=== PATIENT | male | born 1995 | race Caucasian/White ===

== ENCOUNTER 2017-10-29 14:36 | Emergency (ER) | payer SELFPAY ==
[~2017-10-29] VITALS: Ht 162.6 cm; Wt 63.6 kg
[2017-10-29 14:42] VITALS: BP 118/74; PULSE 78
[2017-10-29] MEDS ORDERED: ULTRAM 50MG TAB50 MG PO (15:54)
== END 2017-10-29 16:17 | disposition home or self-care (01) ==
LOC: COL.ER 14:36
DX: S62.357A Nondisplaced fracture of shaft of fifth metacarpal bone, left hand, initial encounter for closed fracture (principal); W23.0XXA Caught, crushed, jammed, or pinched between moving objects, initial encounter
CPT/HCPCS: Q4021

== ENCOUNTER 2017-11-26 11:21 | Emergency (ER) | payer SELFPAY ==
[~2017-11-26] VITALS: Ht 162.6 cm; Wt 65.9 kg
[~2017-11-26 11:21] MED LIST: ULTRAM 50MG TAB50 MG PO
[2017-11-26 11:22] VITALS: BP 113/72; PULSE 77; TEMP 98
== END 2017-11-26 12:17 | disposition home or self-care (01) ==
LOC: COL.ER 11:21
DX: S92.414A Nondisplaced fracture of proximal phalanx of right great toe, initial encounter for closed fracture (principal); F17.210 Nicotine dependence, cigarettes, uncomplicated; W22.09XA Striking against other stationary object, initial encounter; Y92.009 Unspecified place in unspecified non-institutional (private) residence as the place of occurrence of the external cause

== ENCOUNTER 2018-02-13 19:40 | Emergency (ER) | payer SELFPAY ==
[~2018-02-13] VITALS: Ht 162.6 cm; Wt 65.9 kg
[2018-02-13 20:50] LABS: BASO % 0.2 % (0.0-2.0); EOS % 0.3 % (0-4.0); GRAN % 80.8 % (42.2-75.2); HEMATOCRIT 43.6 % (42.0-52.0); HEMOGLOBIN 15.3 g/dl (13.5-18.0); LYMPH # 1.7 (1.2-3.4); MEAN CELL VOLUME 93 fl (80.0-100.0); MEAN CORPUSCULAR HEMOGLOBIN 33 pg (27.0-31.0); MEAN CORPUSCULAR HGB CONC 35 g/dl (33.0-37.0); MEAN PLATELET VOLUME 9.6 fl (7.4-10.4); MONO # 0.5 (0.1-0.6); MONO % 4.3 % (1.7-9.3); PLATELET COUNT 199 K/mm3 (130-400); RED BLOOD COUNT 4.69 M/mm3 (4.20-5.60); REDCELL DISTRIBUTION WIDTH-CV 13.9 % (11.5-14.5)
[2018-02-13 20:59] VITALS: BP 115/70; PULSE 62; TEMP 96.9
[2018-02-13 20:59] LABS: ALBUMIN 3.7 gm/dL (3.5-5.0); BILIRUBIN,TOTAL 0.4 mg/dL (0.0-1.0); CALCIUM 8.7 mg/dL (8.4-10.2); CREATININE, serum 0.59 mg/dL (0.66-1.25); POTASSIUM 3.8 mmol/L (3.4-5.0); TOTAL PROTEIN 6.7 gm/dL (6.4-8.2)
== END 2018-02-13 21:00 | disposition home or self-care (01) ==
LOC: COL.ER 19:40
PROVIDERS: Family Medicine
DX: F10.129 Alcohol abuse with intoxication, unspecified (principal); E86.0 Dehydration; R11.10 Vomiting, unspecified; Z87.891 Personal history of nicotine dependence; Y90.6 Blood alcohol level of 120-199 mg/100 ml
CPT/HCPCS: J2405; J7030

== ENCOUNTER 2018-03-19 18:25 | Emergency (ER) | payer SELFPAY ==
[~2018-03-19] VITALS: Ht 162.6 cm; Wt 61.3 kg
[2018-03-19 18:50] VITALS: BP 141/85; TEMP 102
[2018-03-19 19:40] LABS: BASO % 0.4 % (0.0-2.0); EOS % 0.1 % (0-4.0); GRAN # 5.9 (1.4-6.5); GRAN % 74.1 % (42.2-75.2); HEMATOCRIT 47.8 % (42.0-52.0); HEMOGLOBIN 17.2 g/dl (13.5-18.0); LYMPH # 0.9 (1.2-3.4); LYMPH % 11.4 % (20.0-51.0); MEAN CELL VOLUME 91 fl (80.0-100.0); MEAN CORPUSCULAR HEMOGLOBIN 33 pg (27.0-31.0); MEAN CORPUSCULAR HGB CONC 36 g/dl (33.0-37.0); MONO # 1.1 (0.1-0.6); MONO % 13.9 % (1.7-9.3); PLATELET COUNT 158 K/mm3 (130-400); RED BLOOD COUNT 5.27 M/mm3 (4.20-5.60); REDCELL DISTRIBUTION WIDTH-CV 14.3 % (11.5-14.5)
[2018-03-19 19:46] LABS: ALBUMIN 4.1 gm/dL (3.5-5.0); BILIRUBIN,TOTAL 0.4 mg/dL (0.0-1.0); CALCIUM 9.3 mg/dL (8.4-10.2); CREATININE, serum 0.76 mg/dL (0.66-1.25); POTASSIUM 3.7 mmol/L (3.4-5.0); TOTAL PROTEIN 6.9 gm/dL (6.4-8.2)
[2018-03-19 19:54] LABS: COLLECTION METHOD RANDOM VOIDED
[2018-03-19 20:05] LABS: MUCOUS Present /lpf; PH 5 (5-8); SQUAMOUS EPITHELIAL None Seen /hpf; URINE APPEARANCE Clear; URINE BACTERIA None Seen /hpf; URINE BILIRUBIN Negative (NEGATIVE); URINE BLOOD Negative (NEGATIVE); URINE COLOR Yellow; URINE GLUCOSE Negative (NEGATIVE); URINE KETONE 1+ (NEGATIVE); URINE LEUKOCYTE ESTERASE Negative (NEGATIVE); URINE NITRATE Negative (NEGATIVE); URINE PROTEIN(semi-quant) Negative (NEGATIVE); URINE RBC 0-2 /hpf; URINE UROBILINOGEN >=4.0 mg/dL (NEGATIVE)
[2018-03-19] MEDS ORDERED: LEVAQUIN 5500 MG/TA1 PO (20:20)
[2018-03-19 21:03] VITALS: PULSE 93
[2018-03-20] MEDS ORDERED: NORCO 325 MG-51 TAB PO (11:14)
[2018-03-21 13:21] LABS: MUMPS AB IgG INDEX 0.3 (()); MUMPS VIRUS ANTIBODY,IGG Negative (())
== END 2018-03-19 21:04 | disposition home or self-care (01) ==
LOC: COL.ER 18:25
PROVIDERS: Physician Assistant
DX: N50.819 Testicular pain, unspecified (principal); R53.81 Other malaise; F17.210 Nicotine dependence, cigarettes, uncomplicated
CPT/HCPCS: J0696

== ENCOUNTER 2018-03-20 11:01 | Emergency (ER) | payer SELFPAY ==
[~2018-03-20] VITALS: Ht 162.6 cm; Wt 60.9 kg
[~2018-03-20 11:01] MED LIST changes: +LEVAQUIN 5500 MG/TA1 PO
[2018-03-20 11:12] VITALS: BP 121/82; TEMP 98.2
[2018-03-20] MEDS ORDERED: NORCO 325 MG-51 TAB PO (11:14)
[2018-03-20 13:31] VITALS: PULSE 87
== END 2018-03-20 13:34 | disposition left against medical advice (07) ==
LOC: COL.ER 11:01
DX: N45.1 Epididymitis (principal)

== ENCOUNTER 2018-11-01 17:50 | Emergency (ER) | payer SELFPAY ==
[~2018-11-01 17:50] MED LIST changes: +NORCO 325 MG-51 TAB PO
[2018-11-01 17:57] VITALS: TEMP 99.3
[2018-11-01 19:52] LABS: BASO % 0.2 % (0.0-2.0); EOS # 0.1 (0.0-0.7); EOS % 0.6 % (0-4.0); GRAN # 9.5 (1.4-6.5); GRAN % 72.5 % (42.2-75.2); HEMATOCRIT 42.8 % (42.0-52.0); HEMOGLOBIN 14.9 g/dl (13.5-18.0); LYMPH # 2.1 (1.2-3.4); LYMPH % 15.8 % (20.0-51.0); MEAN CELL VOLUME 91 fl (80.0-100.0); MEAN CORPUSCULAR HEMOGLOBIN 32 pg (27.0-31.0); MEAN CORPUSCULAR HGB CONC 35 g/dl (33.0-37.0); MONO # 1.4 (0.1-0.6); MONO % 10.6 % (1.7-9.3); PLATELET COUNT 269 K/mm3 (130-400); RED BLOOD COUNT 4.69 M/mm3 (4.20-5.60); REDCELL DISTRIBUTION WIDTH-CV 13.5 % (11.5-14.5)
[2018-11-01 20:03] LABS: BILIRUBIN,TOTAL 0.5 mg/dL (0.0-1.0); CALCIUM 9.1 mg/dL (8.4-10.2); CREATININE, serum 0.71 mg/dL (0.66-1.25); POTASSIUM 3.8 mmol/L (3.4-5.0); TOTAL PROTEIN 7.2 gm/dL (6.4-8.2)
[2018-11-01 20:15] LABS: C-REACTIVE PROTEIN 13.9 mg/dL (0.0-0.9)
[2018-11-01 21:22] LABS: TROPONIN-I < 0.012 ng/mL (0.000-0.035)
[2018-11-01] MEDS ORDERED: LEVAQUIN 750MG750 M1 PO (21:42)
[2018-11-01 22:08] VITALS: BP 113/74; PULSE 86
[2018-11-03] MEDS ORDERED: OMNICEF 300MG300 MG PO (15:12)
[2018-11-03] MEDS ORDERED: LEVAQUIN 5500 MG/TA1 PO (15:20)
== END 2018-11-01 22:08 | disposition home or self-care (01) ==
LOC: COL.ER 17:50
PROVIDERS: Physician Assistant
DX: J18.1 Lobar pneumonia, unspecified organism (principal)
CPT/HCPCS: J1885; Q9967

== ENCOUNTER 2018-11-03 13:10 | Emergency (ER) | payer SELFPAY | END 2018-11-03 16:08 | disposition home or self-care (01) | LOC: COL.ER 13:10 | DX: J18.9 Pneumonia, unspecified organism (principal); F17.210 Nicotine dependence, cigarettes, uncomplicated ==

== ENCOUNTER 2018-11-04 13:00 | Inpatient (IN) | payer SELFPAY ==
[~2018-11-04] VITALS: Ht 162.6 cm; Wt 64.0 kg
[~2018-11-04 13:00] MED LIST changes: +LEVAQUIN 750MG750 M1 PO; +OMNICEF 300MG300 MG PO
[2018-11-04 14:34] LABS: HEMATOCRIT 41.1 % (42.0-52.0); MEAN CELL VOLUME 91 fl (80.0-100.0); MEAN CORPUSCULAR HEMOGLOBIN 32 pg (27.0-31.0); MEAN CORPUSCULAR HGB CONC 35 g/dl (33.0-37.0); MEAN PLATELET VOLUME 9.1 fl (7.4-10.4); PLATELET COUNT 277 K/mm3 (130-400); RED BLOOD COUNT 4.52 M/mm3 (4.20-5.60); REDCELL DISTRIBUTION WIDTH-CV 13.6 % (11.5-14.5)
[2018-11-04 14:39] LABS: HEMOGLOBIN 14.3 g/dl (13.5-18.0)
[2018-11-04 14:46] LABS: ALBUMIN 3.5 gm/dL (3.5-5.0); BILIRUBIN,TOTAL 0.8 mg/dL (0.0-1.0); CALCIUM 9.1 mg/dL (8.4-10.2); CREATININE, serum 0.57 mg/dL (0.66-1.25); POTASSIUM 3.7 mmol/L (3.4-5.0); TOTAL PROTEIN 6.9 gm/dL (6.4-8.2)
[2018-11-04 15:21] LABS: BAND 3 % (0-10); LYMPHOCYTE 1 % (20.0-51.0); NEUTROPHILS 93 % (42.0-75.2)
[2018-11-04 15:22] LABS: PLATELET ESTIMATE NORMAL (NORMAL); TOXIC GRANULATION PRESENT
[2018-11-04] MEDS ORDERED: TYLENOL 500MG500 MG PO (16:06)
[2018-11-04] MEDS ORDERED: ADVIL200 MG PO (16:06)
--- NOTE | 2018-11-04 16:07 | NUR ---
Pt arrived to room 306, he is A/O x3. His breathing is even and unlabored on RA. Pt has wet productive cough. Report R rib pain, warm pack provided. Pt denies N/V. R lung very diminished on auscultation. POC discussed with patient who verbalizes understanding. Call light within reach.
[2018-11-04 16:49] VITALS: BP 136/61; PULSE 78; TEMP 97.7
[2018-11-04 19:31] VITALS: BP 106/60; PULSE 96; TEMP 99.2
[2018-11-04 20:18] LABS: HIV 1/2 Antibodies Non-Reactive; HIV-1p24 Antigen Non-Reactive
--- NOTE | 2018-11-04 20:41 | NUR ---
PT RERSTING IN BED. A+OX4. PAIN /10 IN BACK INCREASES WITH COUGH. LAST BM 11/02/18. RIGHT SIDE LUNG ABEL ARE DIMINISHED. NO NEEDS AT THIS TIME CALL LIGHT IN REACH
[2018-11-04 23:32] VITALS: BP 117/68; PULSE 85; TEMP 99.9
--- NOTE | 2018-11-04 23:32 | NUR ---
PT HELPED TO SHOWER. PAIN IN BACK, PRN MEDS GIVEN. NO NEEDS AT THIS TIME. CALL LIGHT IN REACH
[2018-11-05 03:20] VITALS: BP 124/70; PULSE 94; TEMP 99.3
--- NOTE | 2018-11-05 05:04 | NUR ---
pt had an uneventful night. reports decreases back pain with PRN meds. pt continues to have hot/cold flashes. highest temp 99.9. pt had a shower last night. reports no needs at this time. call light in reach
[2018-11-05 06:17] LABS: HEMATOCRIT 38.3 % (42.0-52.0); HEMOGLOBIN 13.3 g/dl (13.5-18.0); MEAN CELL VOLUME 91 fl (80.0-100.0); MEAN CORPUSCULAR HEMOGLOBIN 32 pg (27.0-31.0); MEAN CORPUSCULAR HGB CONC 35 g/dl (33.0-37.0); MEAN PLATELET VOLUME 9.1 fl (7.4-10.4); PLATELET COUNT 264 K/mm3 (130-400); RED BLOOD COUNT 4.22 M/mm3 (4.20-5.60); REDCELL DISTRIBUTION WIDTH-CV 13.5 % (11.5-14.5)
[2018-11-05 06:31] LABS: CALCIUM 8.4 mg/dL (8.4-10.2); CREATININE, serum 0.67 mg/dL (0.66-1.25); POTASSIUM 3.9 mmol/L (3.4-5.0)
--- NOTE | 2018-11-05 07:04 | NUR ---
report given to MIKE Nagel. pt reports no needs at this time
--- NOTE | 2018-11-05 07:07 | NUR ---
ludmila will call critical lab value.
[2018-11-05 07:12] VITALS: BP 149/66; PULSE 100; TEMP 99.8
--- NOTE | 2018-11-05 07:35 | NUR ---
CALLED DR. MCMULLEN AND ADVISED OF CRITICAL LAB, WBC 22.6. NO NEW ORDERS GIVEN.
--- NOTE | 2018-11-05 08:06 | NUR ---
PT IN BED WITH HOB AT 45 DEGREE ANGLE. PT FEELS A LITTLE SOB. O2 SATS AT 96% ON ROOM AIR. CALLED RT AND RT ADVISED THAT THEY DO NOT HAVE BREATHING TX AT THIS TIME, AND WE JUST KIND OF HAVE TO WATCH FOR NOW. PT HAS PAIN AT 3/10 IN RIGHT SIDE OF RIBS, BUT IS TOLERABLE FOR PT. PT ADVISES THAT HE HAS SOME CLEAR THICK FOAMY SPUTUM IN SMALL AMOUNTS COMING UP. NO NEEDS AT THIS TIME. PT IS NOT HUNGERY. PT WAS OFFERED TO CALL KITCHEN FOR BREAKFAST BUT DECLINED AT THIS TIME. CALL LIGHT WITHIN REACH.
[2018-11-05 08:11] LABS: BAND 5 % (0-10); LYMPHOCYTE 7 % (20.0-51.0); NEUTROPHILS 82 % (42.0-75.2)
[2018-11-05 08:12] LABS: PLATELET ESTIMATE NORMAL (NORMAL)
[2018-11-05 12:38] VITALS: BP 139/66; PULSE 100; TEMP 100
--- NOTE | 2018-11-05 14:00 | NUR ---
According to primary care nurse, Dr. Adams would like to wait till blood cultures results are obtained before placing a PICC. Will obtain consent and perform placement tomorrow. Hospitalist informed.
--- NOTE | 2018-11-05 14:30 | NUR ---
SW attempted to meet with patient about discharge plans. Patient was asleep. SW will try back later.
[2018-11-05 15:45] LABS: INR 1.4 (0.8-3.0); PROTHROMBIN TIME 15.6 SECONDS (9.7-12.8)
[2018-11-05 16:00] VITALS: BP 150/69; PULSE 109; TEMP 99.4
[2018-11-05 17:28] LABS: PLEURAL FLUID RBC 4000 /mm3 (0-0); PLEURAL FLUID WBC 11023 /mm3
[2018-11-05 17:32] LABS: PLEURAL FLUID APPEARANCE HAZY; PLEURAL FLUID COLOR YELLOW
[2018-11-05 17:39] LABS: TOTAL PROTEIN,PLEURAL FLUID 4.3 gm/dL
[2018-11-05 17:42] LABS: GLUCOSE,PLEURAL FLUID < 20 mg/dL
--- NOTE | 2018-11-05 18:46 | NUR ---
PT HAD BEEN SEEN BY DR. STATON THIS AM. DR. STATON DISCUSSED POSSIBLE THOROCENTESIS OR POSSIBLE VATS WHICH WOULD MEAN THAT PT WOULD NEED TO BE TAKEN INTO SURGERY. PT WAS TAKEN DOWN FOR ULTRA SOUND AND THEN RETURNED TO ROOM. PT WAS THEN TAKEN DOWN TO RADIOLOGY FOR THOROCENTESIS. PT RETURNED TO ROOM AND ORDERED FOOD AND HAD SHOWER. PT ADVISES THAT HE FEELS A LOT BETTER SINCE HE HAS HAD THE THOROCENTESIS. PT HAS GIRLFRIEND IN ROOM AT BEDSIDE. PT HAS NO NEEDS AT THIS TIME. CALL LIGHT WITHIN REACH.
--- NOTE | 2018-11-05 19:09 | NUR ---
DR. GAYLE WAS CALLED IN REFERENCE TO PICC PLACEMENT. DR. GAYLE ADVISED TO WAIT UNTIL THE BLOOD CULTURES COME BACK BEFORE PLACEMENT OF PICC LINE. DARRELL MCKEON ADVISED AND DR. MCMULLEN. DR. MCMULLEN ADVISED THAT IT WOULD BE OKAY TO WAIT FOR BLOOD CULTURES WELL.
[2018-11-05 19:46] VITALS: BP 115/72; PULSE 93; TEMP 98.4
--- NOTE | 2018-11-05 20:16 | NUR ---
PT resting in bed A+Ox4 no pain. no soa. reports BM today. no needs at this time. call light in reach.
[2018-11-06] VITALS (13 sets, daily range): BP systolic 114–130; BP diastolic 63–84; PULSE 70–111; TEMP 97.5–100.1
--- NOTE | 2018-11-06 05:20 | NUR ---
pt had an uneventful night. pain in back-prn meds given and reported relief. c/o with IV in left arm. discotinued IV. catheter tip intact. New 22G IV started right forarm, flushes well. no redness. no swelling. pt reports no pain with IV site. no needs at this time. call light inreach
[2018-11-06 05:58] LABS: BASO # 0.1 (0.0-0.2); BASO % 0.3 % (0.0-2.0); EOS # 0.4 (0.0-0.7); EOS % 2.5 % (0-4.0); GRAN # 12.9 (1.4-6.5); GRAN % 76.2 % (42.2-75.2); HEMOGLOBIN 13.1 g/dl (13.5-18.0); LYMPH # 2.1 (1.2-3.4); LYMPH % 12.5 % (20.0-51.0); MEAN CELL VOLUME 90 fl (80.0-100.0); MEAN CORPUSCULAR HEMOGLOBIN 32 pg (27.0-31.0); MEAN CORPUSCULAR HGB CONC 36 g/dl (33.0-37.0); MEAN PLATELET VOLUME 9.2 fl (7.4-10.4); MONO # 1.3 (0.1-0.6); MONO % 7.9 % (1.7-9.3); PLATELET COUNT 304 K/mm3 (130-400); RED BLOOD COUNT 4.08 M/mm3 (4.20-5.60); REDCELL DISTRIBUTION WIDTH-CV 13.6 % (11.5-14.5)
[2018-11-06 06:00] LABS: HEMATOCRIT 36.7 % (42.0-52.0)
[2018-11-06 06:20] LABS: CALCIUM 8.4 mg/dL (8.4-10.2); CREATININE, serum 0.67 mg/dL (0.66-1.25); POTASSIUM 3.5 mmol/L (3.4-5.0)
--- NOTE | 2018-11-06 07:22 | NUR ---
report given to MIKE Cruz. pt reports no needs at this time
--- NOTE | 2018-11-06 08:15 | NUR ---
Patient assessment completed. Patient is alert and oriented, unlabored breathing. HR RRR, denies pain, SOB, dizziness, nausea. IV site CDI. Thoracentesis site is clean and dry. Patient requesting shower prior to surgery. Patient currently on clear liquids until 0900 and will be NPO then. Patient denies other needs at this time. Girlfriend is at bedside and call light within reach.
--- NOTE | 2018-11-06 11:02 | NUR ---
PICC line placed, IVF infusing. POC discussed with patient who verbalizes understanding.
--- NOTE | 2018-11-06 14:08 | NUR ---
SW met with patient to discuss discharge planning. Patient lives with his significant other Amanda. He does not have a PCP and obtains his medications at [facility]. SW contacted Financial to meet with patient as he has no insurance. SW will continue to follow for discharge needs.
--- NOTE | 2018-11-06 14:29 | NUR ---
Patient down to surgery. LR running, anesthesia notified. Vanc stopped. Family walked down with patient and will return to get belongings.
--- NOTE | 2018-11-06 15:59 | NUR ---
Report called and given to Teresa in surgical.
--- NOTE | 2018-11-06 17:20 | NUR ---
PATIENT ADMITED INTO ROOM 322-2 POST OP VATS. CHEST TUBE TO LIS, BUBBLING WITH SUCTION CONTROL CHAMBER FLUCTUATING BETWEEN 10-12. LIS TURNED DOWN. PATIENT C/O DISCOMFORT AT CHEST TUBE SITE. GAVE PRN IV DILADID PER ORDERS. RIGHT CHEST TUBE DRESSING IS CD&I. DEMINISHED LUNG FEILDS IN RLL BASE. PATIENT TAKING SHALLOW BREATHES, WHISPERS WITH TALKING. NO C/O N/V. PATIENT GIVEN SIPS OF WATER. IV FLUIDS INFUSING INTO RIGHT UPPER ARM PICC LINE. HEAD TO TOE ASSESSMENT COMPLETE. FAMILY AT BEDSIDE. CALL LIGHT IN REACH.
--- NOTE | 2018-11-06 20:30 | NUR ---
Pt. laying in bed with significant other at bedside. Pt. is A&OX3, assessment complete. PICC to rt. upper arm patent, IV fluids infusing per orders. Chest tube to rt. chest to water seal with continuous suction. Dressing CDI. Pt. reported pain at a 6 on pain scale, gave pain meds per orders. Pt. denies further needs, call light within reach.
[2018-11-07 03:26] VITALS: BP 118/83; PULSE 70; TEMP 97.6
--- NOTE | 2018-11-07 05:55 | NUR ---
Pt. slept off and on through the night. Pt. remains A&OX3. PICC to Rt. upper arm patent, IV fluids infusing per orders. Chest tube to rt. chest intact, to continuous suction, dressing CDI. Pt. given 1 percocet this am, see mar. Pt. denies further needs at this time. Call light within reach.
[2018-11-07 07:18] LABS: HEMATOCRIT 38.2 % (42.0-52.0); HEMOGLOBIN 13.3 g/dl (13.5-18.0); MEAN CELL VOLUME 91 fl (80.0-100.0); MEAN CORPUSCULAR HEMOGLOBIN 32 pg (27.0-31.0); MEAN CORPUSCULAR HGB CONC 35 g/dl (33.0-37.0); MEAN PLATELET VOLUME 9.5 fl (7.4-10.4); PLATELET COUNT 295 K/mm3 (130-400); RED BLOOD COUNT 4.19 M/mm3 (4.20-5.60)
[2018-11-07 07:28] LABS: CALCIUM 8.8 mg/dL (8.4-10.2); CREATININE, serum 0.55 mg/dL (0.66-1.25); POTASSIUM 3.9 mmol/L (3.4-5.0)
[2018-11-07 07:45] VITALS: BP 120/65; PULSE 61; TEMP 97.7
[2018-11-07 09:06] LABS: BAND 13 % (0-10); LYMPHOCYTE 3 % (20.0-51.0); NEUTROPHILS 76 % (42.0-75.2); PLATELET ESTIMATE NORMAL (NORMAL)
--- NOTE | 2018-11-07 09:45 | NUR ---
Patient alert and oriented, answers questions appropriately. See assessment. Chest tube to suction in place to right upper chest, dressing clean, dry and intact. Bubbling noted in chest tube. Lungs clear in bases and left upper lobe. Scattered wheezes noted to RUL. Encouraged cough and deep breath. Encouraged to ambulate.
--- NOTE | 2018-11-07 10:15 | NUR ---
Dr Christensen here to see patient, suction to chest tube disconnected by physician.
--- NOTE | 2018-11-07 11:07 | NUR ---
ANY met with patient and girlfriend. Patient voiced concerns about paying for the prescribed antibiotics when he is discharged. SW informed patient she can provide a med voucher if the antibiotics are oral. At this time it is unknown if patient will need IV or oral antibiotics. SW will continue to follow and assist with discharge needs.
[2018-11-07 11:53] VITALS: BP 116/65; PULSE 71; TEMP 97.5
[2018-11-07 16:06] VITALS: BP 108/71; PULSE 84; TEMP 98.1
[2018-11-07 21:12] VITALS: BP 124/83; PULSE 73; TEMP 98
[2018-11-08 00:56] VITALS: BP 115/72; PULSE 61; TEMP 97.8
[2018-11-08 04:30] VITALS: BP 107/71; PULSE 67; TEMP 97.6
[2018-11-09 08:00] VITALS: BP 113/63; PULSE 82; TEMP 98.2
--- NOTE | 2018-11-09 08:00 | NUR ---
Patient in bed resting. Family at bedside. Alert and oriented x 3. Shift assessment complete. Dressing to right chest tube site, CDI. PICC to JAXON without complications. SCDs to BLE. Denies pain or further needs at this time.
[2018-11-09 12:00] VITALS: BP 112/73; PULSE 87; TEMP 98.6
[2018-11-09 12:35] LABS: .HISTOPLASMA ANTIGEN SERUM None Detected (())
[2018-11-09 15:39] LABS: ALBUMIN 3.1 gm/dL (3.5-5.0); BILIRUBIN,TOTAL 0.3 mg/dL (0.0-1.0); CALCIUM 8.8 mg/dL (8.4-10.2); CREATININE, serum 0.61 mg/dL (0.66-1.25); POTASSIUM 3.8 mmol/L (3.4-5.0); TOTAL PROTEIN 6.6 gm/dL (6.4-8.2)
[2018-11-09 15:40] LABS: CALCIUM 8.7 mg/dL (8.4-10.2); CREATININE, serum 0.57 mg/dL (0.66-1.25); POTASSIUM 3.5 mmol/L (3.4-5.0)
[2018-11-09 16:12] LABS: HEMATOCRIT 37.9 % (42.0-52.0); HEMOGLOBIN 13.2 g/dl (13.5-18.0); MEAN CELL VOLUME 91 fl (80.0-100.0); MEAN CORPUSCULAR HEMOGLOBIN 32 pg (27.0-31.0); MEAN CORPUSCULAR HGB CONC 35 g/dl (33.0-37.0); MEAN PLATELET VOLUME 9.5 fl (7.4-10.4); PLATELET COUNT 295 K/mm3 (130-400); RED BLOOD COUNT 4.15 M/mm3 (4.20-5.60); REDCELL DISTRIBUTION WIDTH-CV 13.9 % (11.5-14.5)
[2018-11-09 16:12] LABS: HEMATOCRIT 39.3 % (42.0-52.0); HEMOGLOBIN 13.5 g/dl (13.5-18.0); MEAN CELL VOLUME 92 fl (80.0-100.0); MEAN CORPUSCULAR HEMOGLOBIN 32 pg (27.0-31.0); MEAN CORPUSCULAR HGB CONC 34 g/dl (33.0-37.0); MEAN PLATELET VOLUME 8.8 fl (7.4-10.4); PLATELET COUNT 300 K/mm3 (130-400); RED BLOOD COUNT 4.27 M/mm3 (4.20-5.60); REDCELL DISTRIBUTION WIDTH-CV 14.2 % (11.5-14.5)
[2018-11-09 16:43] VITALS: BP 109/62; PULSE 85; TEMP 97.8
--- NOTE | 2018-11-09 17:37 | NUR ---
Patient has rested well through the day. Family in room. States occassional mild pain to right chest tube site. PICC to right upper arm without complications. Has been up ambulating with girlfriend and walker, steady gait. Denies further needs at this time. Will report off to film processing shift supervisor.
--- NOTE | 2018-11-09 21:30 | NUR ---
Pt. sitting up in bed with family at bedside. Pt. is A&OX3, assessment complete. PICC to rt. upper arm patent. Dressing to rt. chest tube site CDI with gauze. Pt. reports pain at a 5 on pain scale, gave pain meds per orders. Pt. denies further needs, call light within reach.
[2018-11-10] VITALS: BP 125/76; PULSE 80; TEMP 98.3
[2018-11-10 05:41] LABS: HEMATOCRIT 39.3 % (42.0-52.0); HEMOGLOBIN 13.5 g/dl (13.5-18.0); MEAN CELL VOLUME 92 fl (80.0-100.0); MEAN CORPUSCULAR HEMOGLOBIN 32 pg (27.0-31.0); MEAN CORPUSCULAR HGB CONC 34 g/dl (33.0-37.0); MEAN PLATELET VOLUME 8.5 fl (7.4-10.4); PLATELET COUNT 307 K/mm3 (130-400); RED BLOOD COUNT 4.29 M/mm3 (4.20-5.60)
[2018-11-10 05:52] LABS: CALCIUM 8.9 mg/dL (8.4-10.2); CREATININE, serum 0.63 mg/dL (0.66-1.25); POTASSIUM 3.9 mmol/L (3.4-5.0)
[2018-11-10 06:23] LABS: BAND 3 % (0-10); BASOPHIL 1 % (0-2); EOSINOPHIL 9 % (0-4); LYMPHOCYTE 21 % (20.0-51.0); NEUTROPHILS 58 % (42.0-75.2); PLATELET ESTIMATE NORMAL (NORMAL); SCHISTOCYTES 1+
[2018-11-10 08:21] VITALS: BP 112/72; PULSE 75; TEMP 98
--- NOTE | 2018-11-10 10:00 | NUR ---
Patient ambulating in [place] with walker and stand by assist.
[2018-11-10] MEDS ORDERED: LEVAQUIN 750MG750 M1 PO ×2 (11:50→13:26)
[2018-11-10] MEDS ORDERED: CLEOCIN HCL300 MG PO ×2 (11:51→13:26)
[2018-11-10 12:16] VITALS: BP 120/82; PULSE 99; TEMP 98.2
--- NOTE | 2018-11-10 13:30 | NUR ---
Discharge instructions provided. Patient educated on signs and symptoms of infection and when to call provider. Appointment cards provided. Educated patient on post picc line care. Denies pain at this time. Denies further needs at this time.
--- NOTE | 2018-11-10 13:33 | NUR ---
The patient is to discharge today, 11/10. ANY met with the patient regarding a med voucher. ANY provided a med voucher for the patient to [facility]. ANY faxed script and med voucher to [facility], a copy was placed in the patient's chart, and the patient is instructed to take the originals Nazlini's. ANY informed the housekeeping aid. There are no additional needs at this time.
--- NOTE | 2018-11-10 13:40 | NUR ---
Patient ambulated out with surgical staff.
== END 2018-11-10 13:40 | disposition home or self-care (01) | DRG 853 ==
LOC: COL.ER 13:00 → MEDICAL 14:18 → SURG 11-06 15:23
PROVIDERS: Emergency Medicine; Internal Medicine Infectious Disease; Internal Medicine Pulmonary Disease; Physician Assistant; Surgery; ADMIT Hospitalist
PROC: 0BNC4ZZ Release Right Upper Lung Lobe, Percutaneous Endoscopic Approach (ICD-10-PCS; principal; 2018-11-06 15:00)
PROC: 0BNJ4ZZ Release Left Lower Lung Lobe, Percutaneous Endoscopic Approach (ICD-10-PCS; principal; 2018-11-06 15:00)
DX: A41.9 Sepsis, unspecified organism (principal); J18.1 Lobar pneumonia, unspecified organism; J85.0 Gangrene and necrosis of lung; J90 Pleural effusion, not elsewhere classified; F17.210 Nicotine dependence, cigarettes, uncomplicated
CPT/HCPCS: OP; 99222-AI; 99231-AI; 99232-AI; 99233-AI; 99239; A4216; A7041; A9284; C1751; C1894; G0378; J0692; J1100; J1170; J1644; J1956; J2405; J2543; J2704; J3010; J3370; J7030; J7050; J7120; Q9967